=== PATIENT | female | born 1995 | race Caucasian/White ===

== ENCOUNTER 2016-04-16 10:27 | Outpatient (CLI) ==
--- NOTE | 2016-04-16 11:27 | US ---
EXAM: Diagnostic left breast ultrasound HISTORY: Palpable nodule in the left breast. COMPARISON: None FINDINGS: Sonographic and Doppler evaluation of the left breast in the area of interest from two to three o'clock was performed. There is an ovoid wider than tall hypoechoic nodule measuring 0.8 x 0. 4 x 0.8 cm. The borders are well circumscribed with uniform echogenicity. There is no definitive i nternal color Doppler flow identified. No additional nodule or abnormalities identified. There is no calcification identified. 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 Recommendation: Follow-up ultrasound in 6 months. BIRADS category III: probable benign finding.
== END 2016-04-16 10:28 | disposition home or self-care (01) ==
LOC: RAD 10:27
PROVIDERS: ATTEND Nurse Practitioner Family
DX: N63 Unspecified lump in breast (principal)

== ENCOUNTER 2016-06-09 13:58 | Outpatient (CLI) ==
--- NOTE | 2016-06-09 14:39 | DI ---
EXAM: Radiographs, left clavicle HISTORY: Left shoulder pain. COMPARISON: None available. TECHNIQUE: Two views. FINDINGS: Bone mineralization is normal. There is no fracture or dislocation. The joint spaces ar e maintained. No focal soft tissue abnormality is seen. IMPRESSION: No fracture or dislocation.
--- NOTE | 2016-06-09 14:39 | DI ---
EXAM: Radiographs, left elbow HISTORY: Left elbow pain. COMPARISON: None available. TECHNIQUE: Three views. FINDINGS: Bone mineralization is normal. There is no fracture or dislocation. The joint spaces ar e maintained. No focal soft tissue abnormality is seen. IMPRESSION: No fracture or dislocation.
--- NOTE | 2016-06-09 14:39 | DI ---
EXAM: Two views of the left humerus HISTORY: Pain in left upper arm. COMPARISON: None FINDINGS: No lytic or blastic lesion of the left humerus is identified. There is no cortical irregu larity or displaced fracture of the left humerus. Soft tissues are unremarkable. There is no abnorm al periosteal reaction. IMPRESSION: No acute abnormality of the left humerus.
--- NOTE | 2016-06-09 14:39 | DI ---
EXAM: Radiographs, left shoulder HISTORY: Initial presentation for left shoulder injury. COMPARISON: None available. TECHNIQUE: Three views. FINDINGS: Bone mineralization is normal. There is no fracture or dislocation. The joint spaces ar e maintained. No focal soft tissue abnormality is seen. IMPRESSION: No fracture or dislocation.
== END 2016-06-09 13:59 | disposition home or self-care (01) ==
LOC: RAD 13:58
PROVIDERS: ATTEND Nurse Practitioner Family
DX: M25.512 Pain in left shoulder (principal); S49.92XA Unspecified injury of left shoulder and upper arm, initial encounter; M79.622 Pain in left upper arm; M25.522 Pain in left elbow

== ENCOUNTER 2016-10-15 16:33 | Outpatient (CLI) | END 2016-10-15 16:34 | disposition home or self-care (01) | LOC: LAB 16:33 | PROVIDERS: ATTEND Nurse Practitioner Family | DX: J02.9 Acute pharyngitis, unspecified (principal) | CPT/HCPCS: 87651; 87880 ==

== ENCOUNTER 2016-11-05 16:31 | Outpatient (CLI) ==
[2016-11-05 16:58] LABS: FLU INTERNAL QC INTERNAL QC VALID; RAPID FLU A NEGATIVE (NEGATIVE); RAPID FLU B NEGATIVE (NEGATIVE)
== END 2016-11-05 16:32 | disposition home or self-care (01) ==
LOC: LAB 16:31
PROVIDERS: ATTEND Nurse Practitioner Family
DX: R50.9 Fever, unspecified (principal); R51 Headache; R52 Pain, unspecified
CPT/HCPCS: 87651; 87804; 87880

== ENCOUNTER 2016-11-07 12:13 | Emergency (ER) ==
[2016-11-07 12:29] VITALS: BP 139/88; TEMP 101.7; BMI 49.4
[2016-11-07 13:33] LABS: BILIRUBIN,URINE 2+ (NEGATIVE); KETONES,URINE 2+ (NEGATIVE); LEUKOCYTE ESTERASE ,URINE 1+ (NEGATIVE); NITRITE,URINE Negative (NEGATIVE); PROTEIN,URINE 2+ (NEGATIVE); URINE, BLOOD 3+ (NEGATIVE)
[2016-11-07 13:40] LABS: ADD URINE MICROSCOPIC YES
[2016-11-07 13:41] LABS: BACTERIA,URINE 2+ (NOT PRESENT)
[2016-11-07] MEDS ORDERED: LIDOCAINE 1 % AMP 5 ML (SUTURES) IM STA (13:51)
[2016-11-07] MEDS ORDERED: ROCEPHIN IM STA (13:51)
[2016-11-07 13:53] LABS: BASOPHILS % (AUTO) 0.2 % (0.0-3.0); EOSINOPHILS % (AUTO) 0.2 % (0.0-7.0); HEMATOCRIT 38.1 % (37.0-47.0); HEMOGLOBIN 13.2 g/dl (12.0-16.0); IMMATURE GRANULOCYTE % (AUTO) 0.4 % (0.0-5.0); LYMPHOCYTES # (AUTO) 1.7 K/uL (0.60-3.4); LYMPHOCYTES % (AUTO) 18.4 (10.0-50.0); MEAN CORPUSCULAR HEMOGLOBIN 29.5 pg (27.0-31.0); MEAN CORPUSCULAR HGB CONC 34.6 (31.8-35.4); MONOCYTES % (AUTO) 10.8 (0-10); NEUTROPHILS # (AUTO) 6.3 K/ul (2.0-6.9); PLATELET COUNT 242 10^3/uL (140-440); RED BLOOD COUNT 4.48 10^6/ul (4.20-5.40); WHITE BLOOD COUNT 8.99 K/ul (4.6-10.2)
--- NOTE | 2016-11-07 13:55 | ED.PDOC ---
General ED Provider: Dr. VERONICA CONNELL Chief Complaint: Fever Stated Complaint: fever abdominal pain Time Seen by Physician: 12:17 (seen with entire staff) Information Source: Patient Exam Limitations: No limitations [facility] Nursing and Triage Documentation Reviewed and Agree: Yes GI Complaint Exam - Abdominal Pain Complaint/Exam Onset: Gradual Duration: 7 days Symptoms Are: Still present Timing: Intermittent Initial Severity: Moderate Current Severity: Mild Location of Pain: Diffuse Character: Reports: Dull, Aching Aggravating: Reports: None Alleviating: Reports: None Associated Signs and Symptoms: Reports: Dysuria. Denies: Diaphoresis, Fever, Cough, Chest pain, Dizziness, Back pain, Constipation, Blood in stool, Urinary frequency, Decreased urine output, Decreased appetite, Vaginal bleeding, Vaginal discharge, Nausea, Vomiting, Diarrhea, Sore throat, Decreased activity AAA Risk Factors: Reports: None Cardiac Risk Factors: Reports: None Ectopic Risk Factors: Reports: None Ovarian Torsion Risk Factors: Reports: None Surgical Obstruction Risk Factors: Reports: None Related Surgical History: Reports: None Patient Rh Status: Unknown Abdominal Findings: Present: None Differential Diagnoses: Appendicitis, Bowel Obstruction, Constipation, Gastroenteritis, UTI Review of Systems - Review Of Systems Constitutional: Reports: No symptoms Eyes: Reports: No symptoms Ears, Nose, Mouth, Throat: Reports: No symptoms Respiratory: Reports: No symptoms Cardiac: Reports: No symptoms GI: Reports: Abdominal pain : Reports: Dysuria Musculoskeletal: Reports: No symptoms Skin: Reports: No symptoms Neurological: Reports: No symptoms Endocrine: Reports: No symptoms Hematologic/Lymphatic: Reports: No symptoms All Other Systems: Reviewed and Negative Past Medical History - Past Medical History Previously Healthy: Yes Endocrine: Reports: None Cardiovascular: Reports: None Respiratory: Reports: None Hematological: Reports: None Gastrointestinal: Reports: None Genitourinary: Reports: None Neuro/Psych: Reports: None Musculoskeletal: Reports: None Cancer: Reports: None Last Menstrual Period: on - Surgical History General Surgical History: Reports: None - Family History Family History: Reports: None - Social History Smoking Status: Never smoker Hx Substance Use: No Alcohol Screening: None - Immunizations Tetanus Shot up to Date: Yes Physical Exam - Physical Exam Appearance: Well-appearing, No pain distress, Well-nourished Eyes: SHANITA, EOMI, Conjunctiva clear ENT: Ears normal, Nose normal, Oropharynx normal Respiratory: Airway patent, Breath sounds clear, Breath sounds equal, Respirations nonlabored Cardiovascular: RRR, Pulses normal, No rub, No murmur GI/: Soft, Nontender, No masses, Bowel sounds normal, No Organomegaly Musculoskeletal: Normal strength, ROM intact, No edema, No calf tenderness Skin: Warm, Dry, Normal color Neurological: Sensation intact, Motor intact, Reflexes intact, Cranial nerves intact, Alert, Oriented Psychiatric: Affect appropriate, Mood appropriate Critical Care Note - Critical Care Note Total Time (mins): 0 Course - Course Orders, Labs, Meds: Lab Review 11/07/16 12:27 Urine Color Yellow Urine Clarity Slightly Urine pH 6.0 Ur Specific [place] 1.020 Urine Protein 2+ Urine Glucose (UA) Negative Urine Ketones 2+ Urine Blood 3+ Urine Nitrite Negative Urine Bilirubin 2+ Urine Urobilinogen 1.0 Ur Leukocyte Esterase 1+ Urine Microscopic RBC 30-50 Urine Microscopic WBC 30-50 Ur Squamous Epith Cells 5-10 Urine Bacteria 2+ Orders Category Date Time Status BLOOD CULTURE Stat LAB 11/07/16 13:25 Received CBC W/ AUTO DIFF Stat LAB 11/07/16 13:25 Received COMPREHENSIVE METABOLIC PANEL Stat LAB 11/07/16 13:25 Received CREATINE KINASE Stat LAB 11/07/16 13:25 Received MOLECULAR GROUP A STREP Stat LAB 11/07/16 12:27 Results SERUM Stat LAB 11/07/16 13:25 Received STREP SCREEN Stat LAB 11/07/16 12:27 Results TROPONIN I Stat LAB 11/07/16 13:25 Received URINALYSIS C & S IF INDICATED Stat LAB 11/07/16 12:27 Completed URINE CULTURE Stat LAB 11/07/16 12:27 Received Ceftriaxone Sodium [Rocephin] MEDS 11/07/16 13:51 Stat 1 gm IM ONCE STA Lidocaine HCl/Pf [Lidocaine 1 % Amp 5 ml (Sutures)] MEDS 11/07/16 13:51 Stat 2.1 ml IM ONCE STA CHEST, 2 VIEWS PA & LAT Stat RADS 11/07/16 12:[address] ABDOMEN/PELVIS WO CONTRAST Stat RADS 11/07/16 12:57 Stop Req Medications Discontinued Medications Generic Name Dose Route Start Last Admin Trade Name Freq PRN Reason Stop Dose Admin Ceftriaxone Sodium 1 gm 11/07/16 13:51 Rocephin IM 11/07/16 13:52 ONCE STA Lidocaine HCl 2.1 ml 11/07/16 13:51 Lidocaine 1 % Amp 5 Ml (Sutures) IM 11/07/16 13:52 ONCE STA Vital Signs: Temp Pulse Resp BP Pulse Ox 11/07/16 12:15 101.7 F H 106 H 20 139/88 97 Departure - Departure Time of Disposition: 15:20 Disposition: HOME SELF-CARE Discharge Problem: Abdominal pain Qualifiers: Abdominal location: generalized Qualifier Code: (R10.84) Generalized abdominal pain Instructions: Abdominal Pain (ED) Condition: Good Pt referred to PMD for follow-up: No Prescriptions: Sulfamethoxazole/Trimethoprim [Bactrim Ds 800/160 mg] 1 tab PO Q12HR #10 tablet Allergies/Adverse Reactions: Allergies amoxicillin trihydrate [From Amoxil] Allergy (Severe, Verified 11/07/16 12:34) tongue swells notified pt to get medical alert necklace Home Medications: Ambulatory Orders Sulfamethoxazole/Trimethoprim [Bactrim Ds 800/160 mg] 1 tab PO Q12HR #10 tablet 11/07/16
[2016-11-07 14:02] LABS: SERUM PREGNANCY INTERNAL QC INTERNAL QC VALID
[2016-11-07 14:26] LABS: ALANINE AMINOTRANSFERASE 28 U/L (12-78); ALBUMIN 3.3 g/dL (3.4-5.0); ALBUMIN/GLOBULIN RATIO 0.69; ALKALINE PHOSPHATASE 71 U/L (42-98); ANION GAP 15.1; ASPARTATE AMINO TRANSFERASE 22 U/L (15-37); BILIRUBIN,TOTAL 0.93 mg/dL (0.00-1.20); BLOOD UREA NITROGEN 9 mg/dL (7-18); BUN/CREATININE RATIO 10.97; CALCIUM 9.6 mg/dL (8.2-10.2); CARBON DIOXIDE 27 mmol/L (21-32); CHLORIDE 98 mmol/L (98-107); CREATINE KINASE 164 U/L; CREATININE 0.82 mg/dL (0.60-1.30); GLUCOSE 93 mg/dL (70-110); POTASSIUM 3.1 mmol/L (3.5-5.10); SODIUM 137 mmol/L (136-145); TOTAL PROTEIN 8.1 g/dL (6.4-8.2)
[2016-11-07 14:37] LABS: CREATINE KINASE MB 0.4 ng/ml (0.0-3.6)
== END 2016-11-07 14:50 | disposition home or self-care (01) ==
LOC: ED 12:13
DX: R10.84 Generalized abdominal pain (principal); R30.0 Dysuria; R50.9 Fever, unspecified
CPT/HCPCS: 36415; 80053; 81001; 82550; 82553; 84484; 84703; 85025; 87040; 87086; 87186; 87651; 87880; 99283

== ENCOUNTER 2017-03-25 13:00 | Outpatient (CLI) | END 2017-03-25 13:01 | disposition home or self-care (01) | LOC: LAB 13:00 | PROVIDERS: ATTEND Nurse Practitioner Family | DX: R05 Cough (principal) | CPT/HCPCS: 87502; 87651 ==

== ENCOUNTER 2017-05-26 16:24 | Outpatient (CLI) | END 2017-05-26 16:25 | disposition home or self-care (01) | LOC: RHC-LAB 16:24 | PROVIDERS: ATTEND Emergency Medicine | DX: J06.9 Acute upper respiratory infection, unspecified (principal); R68.89 Other general symptoms and signs | CPT/HCPCS: 87651; 87804 ==

== ENCOUNTER 2018-03-22 09:54 | Outpatient (CLI) | END 2018-03-22 09:55 | disposition home or self-care (01) | LOC: RHC-LAB 09:54 | PROVIDERS: ATTEND Nurse Practitioner Family | DX: R05 Cough (principal) | CPT/HCPCS: 87502; 87651 ==